=== PATIENT | female | born 2005 | race Caucasian/White ===

== ENCOUNTER 2025-08-01 10:12 | Observation (INO) | payer MEDICAID, SELFPAY ==
[2025-08-01] VITALS (8 sets, daily range): BP systolic 133–160; BP diastolic 75–95; PULSE 55–94; TEMP 36.8–36.9; O2SAT 98; BMI 44.1
--- NOTE | 2025-08-01 12:43 | OBADM ---
This patient, Juanita Ariza, admitted to the OB room Labor/Delivery/Recovery 106 for observation. Patient/family oriented to hospital policies and general routines including ID bracelet, bed and alarms, visiting hours, pain management, procedures, bathroom and other care routines, personal items, smoking policy, room service/diet, and visiting hours. Patient/Family are encouraged to report perceived risks to care and to ask questions if they do not understand what they are told or what they should do.
--- NOTE | 2025-08-07 11:53 | PM.OBTRLD ---
OB - Triage/Final Diagnosis Visit Information Comments/Additional reasons for admission: I have assessed the risk for this patient, Juanita Ariza, and determined that she would benefit from observation care. Final Diagnosis (1) Irregular contractions: Code(s): O47.9 - False labor, unspecified Status: Acute
== END 2025-08-01 13:02 | disposition home or self-care (01) ==
PROVIDERS: Admitting Provider Obstetrics & Gynecology; Visit Provider Obstetrics & Gynecology
DX: O47.1 False labor at or after 37 completed weeks of gestation (principal); Z3A.38 38 weeks gestation of pregnancy
CPT/HCPCS: G0378; G0379

== ENCOUNTER 2025-08-01 21:08 | Inpatient (IN) | payer MEDICAID, SELFPAY ==
[2025-08-01] VITALS (9 sets, daily range): BP systolic 132–142; BP diastolic 73–76; PULSE 58–87; TEMP 36.8; O2SAT 98–100; BMI 39.6
--- NOTE | 2025-08-01 21:49 | PC.NURSE ---
RN notified Dr. Carver of patient arrival as well as patient complaints. RN notified MD of previous visit today. RN notified MD of FHT tracing as well as contraction pattern and SVE. MD gave orders to admit patient for observation over night and gave pain medication orders, see MAR.
[2025-08-01 22:11] LABS: OBXCEM ROM Plus Negative (Negative)
[2025-08-01] MEDS: LACTATED RINGERS 1,000 ML 125 ML IV CONT (22:50)
[2025-08-01 23:09] LABS: Hematocrit 34.8 % (37.0-47.0); Hemoglobin 11.6 g/dL (12.0-15.0); Immature Granulocyte Percent A 0.5 % (0-0.5); Lymphocytes Absolute Auto 1.28 K/mm3 (0.9-3.2); Mean Corpuscular HGB Conc 33.3 g/dl (32-36); Mean Corpuscular Hemoglobin 29.5 pg (26-34); Mean Corpuscular Volume 88.5 fl (80-100); Nucleated Red Blood Cells Absolute Auto 0.000 K/mm3 (0.0-0.012); Nucleated Red Blood Cells Perc 0.0 % (0.0-0.2); Platelet Count Result 337 k/mm3 (150-375); Red Blood Count 3.93 M/mm3 (4.2-5.4); White Blood Count 14.6 K/mm3 (4.5-10.0)
[2025-08-01 23:20] LABS: Alanine Aminotransferase 15 U/L (6-35); Albumin Level 3.7 g/dL (3.5-5.1); Alkaline Phosphatase 215 U/L (38-126); Anion Gap 7 mmol/L (4-12); Aspartate Amino Transferase 23 U/L (14-36); Bilirubin,Total 0.5 mg/dL (0.2-1.3); Blood Urea Nitrogen 7 mg/dL (7-17); Calcium 8.7 mg/dL (8.4-10.2); Carbon Dioxide 21 mmol/L (22-30); Chloride 104 mmol/L (98-107); Estimated CRCL calculation 183 ml/min; Estimated Glomerular Filt Rate > 60; Glucose 109 mg/dL (65-110); Potassium 3.7 mmol/L (3.4-5.0); Sodium 132 mmol/L (137-145); Total Protein 7.1 g/dL (6.3-8.2)
[2025-08-01] MEDS: ONDANSETRON INJ 4 MG/2 ML VIAL IV PUSH (23:24)
[2025-08-01 23:26] LABS: Uric Acid 5.2 mg/dL (2.5-7.5)
--- NOTE | 2025-08-01 23:56 | WPDANESEPPF ---
Anes - Initial Pre Proc Eval Procedure: labor epidural Date/Time: 08/01/25 23:56 Surgeon: Erasto Wheeler MD Pre Op Diagnosis: labor pain Pre Op Diagnosis: Contractions Patient Data Age: 19 Gender: F Height: 1.7 m Weight: 115 kg Last Vital Signs Pulse 73 08/01/25 23:16 BP 132/76 08/01/25 23:16 Pulse Ox 99 08/01/25 23:53 O2 Del Method Room Air 08/01/25 22:57 Allergies Allergy/AdvReac Type Severity Reaction Status Date / Time No Known Allergies Allergy Verified 08/01/25 23:06 Home Medications ?Medication ?Instructions ?Recorded ?Confirmed ?Type vit no.95-ferrous 1 tablet PO DAILY 08/01/25 08/01/25 History fumarate 28 mg-folic acid 800 mcg tablet () Laboratory Tests 08/01/25 08/01/25 22:09 23:01 WBC 14.6 H K/mm3 (4.5-10.0) RBC 3.93 L M/mm3 (4.2-5.4) Hgb 11.6 L g/dL (12.0-15.0) Hct 34.8 L % (37.0-47.0) MCV 88.5 fl (80-100) MCH 29.5 pg (26-34) MCHC 33.3 g/dl (32-36) RDW 13.5 % (11.5-14.5) Plt Count 337 k/mm3 (150-375) MPV 10.8 H fl (7.4-10.4) Immature Gran % (Auto) 0.5 % (0-0.5) Neut % (Auto) 86.6 H % (45.5-73.1) Lymph % (Auto) 8.8 L % (18.3-44.2) [place] % (Auto) 3.9 % (2.6-8.5) Eos % (Auto) 0.0 % (0-4.4) Baso % (Auto) 0.2 % (0.2-1.2) Lymph # (Auto) 1.28 K/mm3 (0.9-3.2) [place] # (Auto) 0.6 K/mm3 (0.1-0.6) Eos # (Auto) 0.0 K/mm3 (0-0.3) Baso # (Auto) 0.0 K/mm3 (0.0-0.1) Abs Immat Gran (auto) 0.08 H K/mm3 (0.00-0.031) Absolute Neuts (auto) 12.6 H K/mm3 (1.3-6.7) Absolute Nucleated RBC 0.000 K/mm3 (0.0-0.012) Nucleated RBC % 0.0 % (0.0-0.2) Sodium 132 L mmol/L (137-145) Potassium 3.7 mmol/L (3.4-5.0) Chloride 104 mmol/L (98-107) Carbon Dioxide 21 L mmol/L (22-30) Anion Gap 7 mmol/L (4-12) BUN 7 mg/dL (7-17) Creatinine 0.54 L mg/dL (0.7-1.0) Estim Creat Clear Calc 183 ml/min Estimated GFR > 60 (59 - ) Glucose 109 mg/dL (65-110) Uric Acid 5.2 mg/dL (2.5-7.5) Calcium 8.7 mg/dL (8.4-10.2) Total Bilirubin 0.5 mg/dL (0.2-1.3) AST 23 U/L (14-36) ALT 15 U/L (6-35) Alkaline Phosphatase 215 H U/L (38-126) Total Protein 7.1 g/dL (6.3-8.2) Albumin 3.7 g/dL (3.5-5.1) Membranes Rupture Rom plus negative (Negative) Blood Type O Positive Antibody Screen Pending Patient hx anesthesia problems: none Family hx anesthesia problems: none Results Review: All pre-operative results and documents have been reviewed as part of the pre-operative evaluation. [facility] Social History Social History Lack of Transportation: YES Lack of Food: Never True Current Housing: I Have Housing Concerned About Future Housing: No Difficulty Paying Gas/Electric Bills: No Difficulty Paying for Meds: No Currently Unemployed: No Education: High School Diploma/GED Difficulty w/ Childcare or Family Care: No Anes - Eval Final PreProcedure Day of Procedure 08/01/25 23:56 Heart: regular rate and rhythm Lungs: clear to auscultation and normal air movement Airway: Mallampati scale class II Neurological: alert and oriented ASA classification: II Anesthetic plan: proceed Anesthesia type and monitoring: regional epidural and standard monitoring Results Review: All pre-operative results and documents have been reviewed as part of the pre-operative evaluation. Informed Consent: The patient's anesthetic plan and its attendant risks and benefits were discussed with the patient/family/POA. Questions were solicited and answers provided to the satisfaction of the patient/family/POA.
--- NOTE | 2025-08-01 23:57 | PC.NURSE ---
RN notified MD of change in SVE as well as patient's pain. RN notified MD of FHT tracing and contraction pattern. MD gave orders to admit patient. MD gave orders for low dose pitocin if contractions space out and patient does not make more cervical change.
[2025-08-02] VITALS (103 sets, daily range): BP systolic 102–177; BP diastolic 46–97; PULSE 63–145; RESP 18; TEMP 36.9–37.1; O2SAT 86–100
[2025-08-02] MEDS: LACTATED RINGERS 1,000 ML 125 ML IV CONT
[2025-08-02 00:05] LABS: Syphilis IgG/IgM Antibody Non-Reactive (Nonreactive)
--- NOTE | 2025-08-02 00:56 | LDADM ---
This patient, Juanita Ariza, was admitted to Labor/Delivery/Recovery 106 on 08/01/25 at 23:38. Plans for labor, pain management and were discussed with patient. Patient/family oriented to hospital policies and general routines including ID bracelet, bed and alarms, visiting hours, pain management, procedures, bathroom and other care routines, personal items, smoking policy, room service/diet and guest tray routines, security routines, and visiting hours. Patient/Family are encouraged to report perceived risks to care and to ask questions if they do not understand what they are told or what they should do. See OBIX for further documentation.
[2025-08-02] MEDS: OXYTOCIN 30 UNITS/NS 500 ML 30 UNITS/500 ML BAG 999 UNITS IV CONT (04:34)
[2025-08-02] MEDS: OXYTOCIN 30 UNITS/NS 500 ML 30 UNITS/500 ML BAG 125 UNITS IV CONT (05:07)
[2025-08-02] MEDS: BENZOCAINE 20% AER SPR (*SP) 56 GM CAN 1 SPRAY (08:34)
[2025-08-02] MEDS: WITCH HAZEL 40 PADS 1 PAD (08:34)
--- NOTE | 2025-08-02 08:50 | OBPPTRN ---
Patient transferred to post room #278 via wheelchair. Support person present. Oriented to unit, room, information board, rooming in, admission packet and security measures. Patient verbalizes understanding.
[2025-08-02] MEDS: ACETAMINOPHEN 500 MG TABLET 1000 MG PO ×2 (09:36→19:40)
--- NOTE | 2025-08-02 09:40 | PC.NURSE ---
Consulted with patient to assess needs related to . Discussed with mother her successes, concerns and any questions she has. Per mother she fed a formula bottle downstairs but interested to see if will latch and breastfeed. She plans on pumping and bottle feeding when she goes home, she may be interested in an insurance pump but wants to check with her WIC counselor first. We reviewed working with the infant, supporting breast, protecting her nipples with an optimal deep latch, good positioning, and good hand washing. Encouraged understanding the benefits of skin to skin, responding to feeding cues, frequencies of feeding 8-12 times in 24 hours (approximately 2-3 hours), duration of feedings, milk production, intake/output feeding sheet and signs of adequate intake encouraging swallowing at the breast. Reviewed positioning and alignment, supporting breast, off-centered (asymmetrical latch) and leading with the chin with big, open, wide gape. latched optimally to the [right] breast in [football] position. Education given to the mother of how to visualize the suckling (with good rocking jaw motion) swallows (dropping of the lower jaw) and how to listen for drinking at the breast (the ka sound). The was [able] to maintain latch without discomfort to mother. Nipple care reviewed with optimal latch, good positioning and using clean hands when touching her breast. Resources used to facilitate learning were used from the [visual handouts/ tool/mom and baby guide]. Mother voiced understanding of the education shared, to call for assistance if the does not latch or if there is discomfort with . Reported to the Primary RN.
[2025-08-03 04:38] VITALS: BP 133/81; PULSE 75; RESP 16; TEMP 37.3; O2SAT 98
[2025-08-03] MEDS: ACETAMINOPHEN 325 MG TABLET 650 MG PO ×2 (05:40→16:00)
[2025-08-03 05:45] LABS: Hematocrit 27.0 % (37.0-47.0); Hemoglobin 8.6 g/dL (12.0-15.0)
[2025-08-03 07:20] VITALS: BP 114/65; PULSE 81; RESP 16; TEMP 36.9; O2SAT 98
[2025-08-03] MEDS: IBUPROFEN 600 MG TABLET PO ×2 (07:25→16:00)
--- NOTE | 2025-08-03 08:28 | PM.OBPRVD ---
OB - Vaginal Delivery Note Procedure Delivery date: 08/03/25 Delivery monitor: External FHT and External Uterine Episiotomy description: None Laceration Description: Perineal - 2nd Degree Delivery repair: vicryl Quantitative Blood Loss (ml): 200 Anesthesia type: Epidural Complications: No immediate complications
--- NOTE | 2025-08-03 10:36 | WPDANLDPN2 ---
Anes-Prog Note L&D Date/Time: 08/03/25 10:36 Comfortable throughout: labor and delivery Neuraxial method: epidural Epidural/Spinal procedure site: clean & non-tender Neuro status: Neuro function grossly intact. Cardiovascular status: normal Respiratory status: normal Airway patency: baseline Mental status: baseline Post-Op hydration status: normal Vital Signs: Last Vital Signs Temp 36.9 C 08/03/25 07:20 Pulse 81 08/03/25 07:20 Resp 16 08/03/25 07:20 BP 114/65 08/03/25 07:20 Pulse Ox 98 08/03/25 07:20 O2 Del Method Room Air 08/02/25 19:32 Pain score (VAS): 1 Post-procedural complaints: none Patient feedback: Patient satisfied with anesthetic care.
--- NOTE | 2025-08-03 11:15 | PC.NURSE ---
Breast pump provided due to mother's request, she was given a [employer] pump as well as a manual hand pump. Instructions given on cleaning, care, usage, that there should be no pain, pumping schedule for milk production, collection, and storage of human milk. Patient was assessed for correct placement, flange size, to pump for comfort and nipple stretching/stimulation for adequate milk production every 3 hours (8 times in 24 hours) 1-2 times at night. Per mother is latching well but she has given a bottle and would prefer to pump and supplement with breast milk if the infant needs it. Parents are encouraged to record the pumping schedule on the feeding sheet.?Mother voiced understanding of the education shared along with mom/baby guide and the pump measurement, flange fit handout for additional resource information. Mother declined WIC referral as she is already set up with [facility]. Reported to the Primary RN.
--- NOTE | 2025-08-03 14:59 | PCCCNOTE ---
Recvd consult due to limited care, THC use, and unsure of support system. Met with pt. who reports this is pt's first baby, and states the FORachel Fede is involved. Pt. reports will live with her mother Nahomy in [place]. Pt. reports her mom and step dad are supportive, as well as her adoptive parents. Pt. reports works at [employer] and they held a baby shower for pt. Pt. also had a baby shower with friends and family outside of work. Pt. reports having baby supplies, and already established with WIC. Pt. denies any prior DCFS involvement. Pt. self reports THC use during ; pt. states using due to her nausea and inability to sleep. Pt. repports limited care due to in the process of moving from [place] to [place] at the beginning of her . resources provided. ASTON Knapp aware of visit. No further needs.
--- NOTE | 2025-08-03 15:51 | P.PNOB_ITS ---
OB - PN: Subj Subjective Date/time seen: 08/03/25 15:51 Patient comments: no complaints, pain well controlled, incisional pain, tolerating diet and flatus present OB - PN: Obj Data Labs 08/03/25 05:36 08/01/25 23:01 Labs: Laboratory Results - last 24 hr 08/03/25 05:36 Hgb 8.6 L D Hct 27.0 L OB - PN A/P Plan day: 1 Plan: routine care Comments: No problems, routine care Time Spent With Patient Time: Total time spent is greater than 50% in coordination of care (as documented) at patient's floor/unit and/or counseling patient: Exam 2 Const: General: comfortable, no acute distress and alert Resp: Effort & Inspection: normal respiratory effort Auscultation: no crackles, no rales and no rhonchi Cardio: Rate: regular rate Heart sounds: no click, no murmurs and no rubs GI: Inspection: non-distended GI Palp: No Tenderness to palpation present (GI) Auscultation: normal bowel sounds Other: Incision - CDI Extrem: General: normal to inspection, no pedal edema and no calf tenderness
[2025-08-03 16:29] VITALS: BP 130/84; PULSE 78; RESP 14; TEMP 37.2; O2SAT 100
[2025-08-03] MEDS: BENZOCAINE 20% AER SPR (*SP) 56 GM CAN 1 SPRAY TOPICAL (16:42)
[2025-08-03] MEDS: WITCH HAZEL 40 PADS 1 PAD TOPICAL (16:42)
[2025-08-03] MEDS: DOCUSATE SODIUM 100 MG CAPSULE PO (17:28)
[2025-08-03 19:44] VITALS: BP 120/79; PULSE 71; RESP 18; TEMP 36.9; O2SAT 100
[2025-08-04] MEDS: ACETAMINOPHEN 325 MG TABLET 650 MG PO ×2 (02:30→09:08)
[2025-08-04] MEDS: IBUPROFEN 600 MG TABLET PO ×2 (02:30→09:08)
[2025-08-04 08:10] VITALS: BP 121/68; PULSE 74; RESP 18; TEMP 37.1; O2SAT 99
[2025-08-04] MEDS: DOCUSATE SODIUM 100 MG CAPSULE PO (09:09)
[2025-08-04] MEDS: MULTIVIT/MIN/PREN/FOL AC/IRON TABLET 1 TAB PO (09:09)
--- NOTE | 2025-08-04 14:00 | P.PNOB_ITS ---
OB - PN: Subj Subjective Date/time seen: 08/04/25 14:00 Patient comments: no complaints, pain well controlled and tolerating diet OB - PN: Obj Data Labs 08/03/25 05:36 08/01/25 23:01 OB - PN A/P Plan day: 2 Plan: routine care and discharge home Time Spent With Patient Time: Total time spent is greater than 50% in coordination of care (as documented) at patient's floor/unit and/or counseling patient: Exam 2 Const: General: comfortable and no acute distress Resp: Effort & Inspection: normal respiratory effort Auscultation: no rales, no rhonchi and no wheezes Cardio: Rate: regular rate Heart sounds: no click, no murmurs and no rubs GI: GI Palp: Yes Soft to palpation and No Tenderness to palpation present (GI) Auscultation: normal bowel sounds Extrem: General: normal to inspection, no pedal edema and no calf tenderness
--- NOTE | 2025-08-04 14:01 | P.DS_ITS ---
DS: Admitting Diagnosis Discharge Date 08/04/2025 Admitting Diagnosis Term DS: Discharge Diagnosis Discharge Diagnosis (1) Term delivered: Code(s): O80 - Encounter for full-term uncomplicated delivery Status: Acute OB - DS: Summary OB Procedures : None OB Procedures Intrapartum: OB Procedures: : None Peripartum Data Laceration Description: Perineal - 2nd Degree Episiotomy description: None Time Spent with Patient Time attestation: Total time spent providing and/or coordinating discharge services: Discharge Plan Discharge Discharging Clinician: John Carver Patient Disposition: Home Activity: pelvic rest Diet: regular Patient Instructions: Antibiotic Form Patient Language: Andorran Stand Alone Forms: General Discharge Information Follow-up/Referrals: John Carver MD [Physician, PRINTER TECHNICIAN] Discharge Medications: Continued PNV no.95-ferrous fumarate-FA [] 28 mg iron- 800 mcg tablet 1 tablet PO DAILY Date of admission: 08/01/25 23:38 Primary Care Provider: UNKNOWN,DOCTOR Admitting Provider: Erasto Wheeler Attending physician on admission: Erasto Wheeler Condition: Stable
[2025-08-06 11:39] VITALS: BP 135/86; PULSE 68; RESP 18; TEMP 36.7; O2SAT 100
== END 2025-08-04 14:52 | disposition home or self-care (01) | DRG 560 ==
LOC: ANHLDR 22:03 → ANHOB2 08-04 14:03 → ANHLDR 08-07 09:41 → ANHOB2 08-07 09:41
PROVIDERS: Admitting Provider Obstetrics & Gynecology; Visit Provider Obstetrics & Gynecology
DX: O70.1 Second degree perineal laceration during delivery (principal); O77.0 Labor and delivery complicated by meconium in amniotic fluid; Z3A.38 38 weeks gestation of pregnancy; Z37.0 Single live birth
CPT/HCPCS: 36415; 80053; 84112; 84550; 85014; 85018; 85025; 86593; 86850; 86900; 86901; A9270; G0378; G0379; J2405; J2590; J2795; J7120